=== PATIENT | female | born 1960 | race Hispanic/Latino ===

== ENCOUNTER 2025-03-05 05:50 | Day surgery (SDC) | payer MEDICARE ==
[~2025-03-05] VITALS: Ht 147.3 cm; Wt 54.9 kg
[2025-03-05] VITALS (12 sets, daily range): BP systolic 102–143; BP diastolic 55–75; PULSE 67–77; RESP 13–18; TEMP 97.5–97.6
[2025-03-05] MEDS ORDERED: ATOR10 PO (06:32)
[2025-03-05] MEDS ORDERED: METF-445 PO (06:32)
[2025-03-05] MEDS ORDERED: ERGO500093 PO (06:32)
[2025-03-05] MEDS ORDERED: LISI10TA24 PO (06:32)
[2025-03-05] MEDS ORDERED: ALEN70TA80 PO (06:32)
[2025-03-05] MEDS ORDERED: SITA25TA5 PO (06:32)
[2025-03-05] MEDS ORDERED: FLUT1BLS3 IH (06:32)
[2025-03-05] MEDS ORDERED: MONT-39 PO (06:32)
[2025-03-05] MEDS: 0.9%NACL 1000ML 1,000 ML IV ONE (06:40)
== END 2025-03-05 08:45 | disposition home or self-care (01) ==
LOC: SUH 05:50 → DAH 05:50 → SUH 08:45
PROVIDERS: ATTEND Internal Medicine
DX: Z12.11 Encounter for screening for malignant neoplasm of colon (principal); D12.2 Benign neoplasm of ascending colon; K29.70 Gastritis, unspecified, without bleeding; B96.81 Helicobacter pylori [H. pylori] as the cause of diseases classified elsewhere; K21.00 Gastro-esophageal reflux disease with esophagitis, without bleeding; K57.30 Diverticulosis of large intestine without perforation or abscess without bleeding; R13.10 Dysphagia, unspecified; I10 Essential (primary) hypertension; E11.9 Type 2 diabetes mellitus without complications; J45.909 Unspecified asthma, uncomplicated; Z79.4 Long term (current) use of insulin; Z79.899 Other long term (current) drug therapy
CPT/HCPCS: 45385; 45380; 43239; 82948; J7030; J2704; A4620; A4215 ×2; A4223; A4222; A4221; A4663; A4606; J3490